=== PATIENT | female | born 2000 | race Caucasian/White ===

== ENCOUNTER 2020-07-03 17:09 | Emergency (ER) | payer OTHER ==
[~2020-07-03] VITALS: Ht 160 cm; Wt 100.7 kg
[2020-07-03 17:25] VITALS: Ht 160 cm; Wt 100.7 kg
[2020-07-03 18:29] LABS: microscopic required? NO
[2020-07-03 18:50] LABS: UA SPECIFIC GRAVITY >=1.030 (1.005-1.035); urine erythrocyte NEGATIVE (NEGATIVE)
[2020-07-03 19:30] VITALS: BP 142/86
== END 2020-07-03 19:29 | disposition home or self-care (01) ==
LOC: ED 17:09
PROVIDERS: Specialist
DX: N73.9 Female pelvic inflammatory disease, unspecified (principal); G89.29 Other chronic pain; R10.2 Pelvic and perineal pain
CPT/HCPCS: 87491; 87591

== ENCOUNTER 2020-07-16 14:24 | Emergency (ER) | payer OTHER ==
[~2020-07-16] VITALS: Ht 160 cm; Wt 102.5 kg
[2020-07-16 14:30] VITALS: Ht 160 cm; Wt 102.5 kg
[2020-07-16 16:11] LABS: UA SPECIFIC GRAVITY >=1.030 (1.005-1.035); microscopic required? YES; urine erythrocyte 3+ (NEGATIVE)
[2020-07-16 17:06] VITALS: BP 115/71
== END 2020-07-16 17:06 | disposition home or self-care (01) ==
LOC: ED 14:24
PROVIDERS: Emergency Medicine
DX: N76.0 Acute vaginitis (principal)
CPT/HCPCS: Q0092